=== PATIENT | female | born 1985 | race Caucasian/White ===

== ENCOUNTER 2021-07-30 23:23 | Observation (INO) | payer OTHER ==
[2021-07-30] MEDS ORDERED: DUONEB 0.5-3 MG/3 ml Neb IH ONE (23:30)
[2021-07-30] MEDS ORDERED: Ativan 2 MG/1 ML VIAL ONE (23:40)
--- NOTE | 2021-07-30 23:50 | ERPHSYRPT ---
- History of Present Illness Time Seen by Provider: 07/30/21 23:25 Source: patient, EMS Exam Limitations: clinical condition Physician History: This is a 42-year-old white female who presents via EMS after being picked up at [facility] because of difficulty breathing. EMS arrived and the patient was in respiratory distress and patient was taking a nebulizer treatment upon their arrival and became unresponsive briefly. Patient did not receive steroids in route and patient was maintaining her oxygen saturations in the 94% range. There was no IV access. IV access was attempted but EMS was unsuccessful. Patient was brought in respiratory distress with pulse in the 120s respiratory rate in the 30s and oxygen saturation 93 to 94%. Patient denies illicit drug use. She states she is having an asthmatic attack. Question of patient possibly having positive COVID-19 infection. Timing/Duration: day(s) (3) Severity of Dyspnea-Max: severe Severity of Dyspnea-Current: moderate Possible Cause: occasional episodes Associated Symptoms: anxiety, heart racing, No chest pain/discomfort Travel Risk - International Travel Have you traveled outside of the country in past 3 weeks: No - Coronavirus Screening Are you exhibiting any of the following symptoms?: No Close contact with a COVID-19 positive Pt in past 14-21 Days: No - Review of Systems Constitutional: Lethargy Eyes: No Symptoms (Mild) Ears, Nose, & Throat: No Symptoms Respiratory: Dyspnea, Wheezing Cardiac: No Symptoms Abdominal/Gastrointestinal: No Symptoms Genitourinary Symptoms: No Symptoms Musculoskeletal: No Symptoms Skin: No Symptoms Neurological: No Symptoms Psychological: No Symptoms Endocrine: No Symptoms Hematologic/Lymphatic: No Symptoms Immunological/Allergic: No Symptoms All Other Systems: Reviewed and Negative - Past Medical History Pertinent Past Medical History: Yes - Nursing Vital Signs Nursing Vital Signs: Initial Vital Signs Temperature 97.5 F 07/30/21 23:26 Pulse Rate 120 H 07/30/21 23:26 Respiratory Rate 34 H 07/30/21 23:26 Blood Pressure 153/80 07/30/21 23:26 O2 Sat by Pulse Oximetry 78 L 07/30/21 23:26 Pain Scale Pain Intensity 0 - Physical Exam General Appearance: moderate distress, anxiety (Rousable), lethargy Eye Exam: PERRL/EOMI, eyes nml inspection Ears, Nose, Throat Exam: hearing grossly normal, normal ENT inspection, normal pharynx Neck Exam: normal inspection, non-tender, supple, full range of motion Respiratory Exam: respiratory distress, airway intact, accessory muscle use, wheezing Cardiovascular/Chest Exam: tachycardia Abdominal/Gastrointestinal Exam: soft, normal bowel sounds, No tenderness Rectal Exam: not done Extremity Exam: non-tender, normal range of motion, slow capillary refill Neurologic Exam: oriented x 3, other (Anxious) Skin Exam: ecchymosis Lymphatic Exam: No adenopathy SpO2 Interpretation: normal O2 Delivery: Room Air - Course Nursing assessment & vital signs reviewed: Yes EKG Interpreted by Me: RATE ([id number]), Sinus Tach, NORMAL AXIS, NORMAL INTERVALS, NORMAL QRS, NORMAL ST-T, Other (No acute ischemic changes on today's EKG. No comparison EKG available.) Ordered Tests: Active Orders 24 hr Category Date Time Status Vb Developer STAT Care 07/30/21 23:51 Active Clean Catch Urine Specimen STAT Care 07/30/21 23:52 Active EKG-ER Only STAT Care 07/30/21 23:51 Active IV Insertion STAT Care 07/30/21 23:51 Active Oxygen-ED Only NON-REBREATHER 100% Care 07/30/21 23:51 Active Pulse Oximetry (ED) STAT Care 07/30/21 23:51 Active Pulse Oximetry (ED) STAT Care 07/30/21 23:51 Active CHEST 1 VIEW (PORTABLE) Stat Exams 07/30/21 23:51 Taken CHEST WITH CONTRAST [CT] Stat Exams 07/31/21 01:28 Taken HEAD WITHOUT CONTRAST [CT] Stat Exams 07/31/21 01:28 Taken ARTERIAL BLOOD GASES Stat Lab 07/30/21 23:25 Completed ARTERIAL BLOOD GASES Urgent Lab 07/31/21 00:56 Completed TROPONIN Q3H Lab 07/31/21 03:31 Completed TROPONIN Q3H Lab 07/31/21 05:51 Ordered TROPONIN Q3H Lab 07/31/21 08:51 Ordered TROPONIN Q3H Lab 07/31/21 11:51 Ordered UA W/RFX UR CULTURE Stat Lab 07/30/21 23:52 Completed Respiratory Therapy Assessment DAILY RT 07/31/21 03:00 Active Transfer Order Routine Transfer 07/31/21 Ordered Medication Summary Generic Name Dose Route Start Last Admin Trade Name Freq PRN Reason Stop Dose Admin Sodium Chloride 1,000 mls @ 100 mls/hr 07/31/21 01:30 07/31/21 01:22 Sodium Chloride 0.9% 1000 Ml IV 08/30/21 01:29 100 mls/hr .Q10H SHAKIR Administration Discontinued Medications Generic Name Dose Route Start Last Admin Trade Name Hubert PRN Reason Stop Dose Admin Albuterol/Ipratropium 3 ml 07/30/21 23:30 07/30/21 23:36 Ipratropium/Albuterol Sulfate 3 Ml Ampul.Neb IH 07/30/21 23:31 3 ml STAT ONE Administration Methylprednisolone Sodium 0 mg 07/30/21 23:53 07/30/21 23:30 Succinate 125 mg/ Sterile IM 07/30/21 23:54 125 mg Water 2 ml STAT ONE Administration Methylprednisolone Sodium 0 mg 07/30/21 23:53 07/30/21 23:40 Succinate 125 mg/ Sterile IV 07/30/21 23:54 125 mg Water 2 ml STAT ONE Administration Ceftriaxone Sodium/Dextrose 1 g in 50 mls @ 100 mls/hr 07/31/21 01:11 07/31/21 02:08 Rocephin 1 Gm-D5w 50 Ml Bag IV 07/31/21 01:40 Infused STAT STA Infusion Ceftriaxone Sodium/Dextrose Confirm 07/31/21 01:19 Rocephin 1 Gm-D5w 50 Ml Bag Administered 07/31/21 01:20 Dose 1 g in 50 mls @ ud IV .STK-MED ONE Lorazepam Confirm 07/30/21 23:40 Lorazepam 2 Mg/1 Ml 2 Mg Vial Administered 07/30/21 23:41 Dose 2 mg .ROUTE .STK-MED ONE Lorazepam 1 mg 07/31/21 00:08 07/31/21 00:42 Lorazepam 2 Mg/1 Ml 2 Mg Vial IV 07/31/21 00:09 1 mg STAT ONE Administration Lab/Rad Data: Laboratory Result Diagrams 07/30/21 00:42 07/30/21 00:42 Laboratory Results 07/31/21 07/31/21 07/31/21 Range/Units 03:31 00:56 00:46 WBC (4.0-10.5) K/mm3 RBC (4.1-5.4) M/mm3 Hgb (12.0-16.0) gm/dl Hct (35-47) % MCV (78-100) fl MCH (26-32) pg MCHC (32-36) g/dl RDW (11.5-14.0) % Plt Count (150-450) K/mm3 MPV (7.5-11.0) fl Segmented Neutrophils (36.0-66.0) % Band Neutrophils (0.0-2.0) % Lymphocytes (Manual) (24-44) % Monocytes (Manual) (0.0-12.0) % Eosinophils (Manual) (0.00-3.0) % Atypical Lymphocytes % Platelet Estimate (NORMAL) RBC Morphology D-Dimer (215-500) ng/mL Puncture Site RIGHT BRACHIAL pCO2 40 (35-45) mmHg pO2 259 H* (75-100) mmHg Base Excess 5.0 H (-2.0-2.0) O2 Saturation 97.5 (94-100) g/dF ABG pH 7.47 H (7.35-7.45) ABG HCO3 29.1 H* (22-28) ABG O2 Sat (Measured) 99.8 (95-100) % Reynaldo Test NOT APPLICABLE A-a Gradient 404 a/A Ratio 0.39 Hemoglobin 14.3 Carboxyhemoglobin 1.1 (0.0-6.9) % THgb Methemoglobin 1.2 L (1.4-1.5) % Temperature 37.0 C POC O2 Flow Rate 100 % Sodium (137-145) mmol/L Potassium 3.5 (3.5-5.1) mmol/L Chloride (98-107) mmol/L Carbon Dioxide (22-30) mmol/L Anion Gap (5-15) MEQ/L BUN (7-17) mg/dL Creatinine (0.52-1.04) mg/dL Estimated GFR ML/MIN Glucose (74-106) mg/dL Calcium (8.4-10.2) mg/dL Total Bilirubin (0.2-1.3) mg/dL AST (14-36) U/L ALT (0-35) U/L Alkaline Phosphatase (38-126) U/L Troponin I < 0.012 (0.000-0.034) ng/mL NT-Pro-B Natriuret Pep (0-450) pg/mL Serum Total Protein (6.3-8.2) g/dL Albumin (3.5-5.0) g/dL Urine Color (YELLOW) Urine Appearance (CLEAR) Urine pH (5-6) Ur Specific [place] (1.005-1.025) Urine Protein (Negative) Urine Ketones (NEGATIVE) Urine Blood (0-5) Hector/ul Urine Nitrite (NEGATIVE) Urine Bilirubin (NEGATIVE) Urine Urobilinogen (0-1) mg/dL Ur Leukocyte Esterase (NEGATIVE) Urine WBC (Auto) (0-5) /HPF Urine RBC (Auto) (0-2) /HPF U Epithel Cells (Auto) (FEW) /HPF Urine Bacteria (Auto) (NEGATIVE) /HPF Urine Culture Reflexed (NO) Urine Glucose (NEGATIVE) mg/dL Urine Opiates Level (NEGATIVE) Ur Methadone (NEGATIVE) Urine Barbiturates (NEGATIVE) Ur Phencyclidine (PCP) (NEGATIVE) Urine Amphetamine (NEGATIVE) U Benzodiazepine Level (NEGATIVE) Urine Cocaine (NEGATIVE) Urine Marijuana (THC) (NEGATIVE) Monoscreen (Negative) Influenza Type A Ag NEGATIVE (NEGATIVE) Influenza Type B Ag NEGATIVE (NEGATIVE) RSV (PCR) NEGATIVE (Negative) SARS-CoV-2 (PCR) POSITIVE A (NEGATIVE) Group A Strep Antibody (NEGATIVE) 07/30/21 07/30/21 07/30/21 Range/Units 23:52 23:25 00:42 WBC (4.0-10.5) K/mm3 RBC (4.1-5.4) M/mm3 Hgb (12.0-16.0) gm/dl Hct (35-47) % MCV (78-100) fl MCH (26-32) pg MCHC (32-36) g/dl RDW (11.5-14.0) % Plt Count (150-450) K/mm3 MPV (7.5-11.0) fl Segmented Neutrophils (36.0-66.0) % Band Neutrophils (0.0-2.0) % Lymphocytes (Manual) (24-44) % Monocytes (Manual) (0.0-12.0) % Eosinophils (Manual) (0.00-3.0) % Atypical Lymphocytes % Platelet Estimate (NORMAL) RBC Morphology D-Dimer (215-500) ng/mL Puncture Site RIGHT BRACHIAL pCO2 84 H* (35-45) mmHg pO2 63 L (75-100) mmHg Base Excess -2.6 L (-2.0-2.0) O2 Saturation 83.6 L (94-100) g/dF ABG pH 7.14 L* (7.35-7.45) ABG HCO3 28.6 H (22-28) ABG O2 Sat (Measured) 85.5 L (95-100) % Reynaldo Test NOT APPLICABLE A-a Gradient 545 a/A Ratio 0.10 Hemoglobin 14.6 Carboxyhemoglobin 1.5 (0.0-6.9) % THgb Methemoglobin 0.7 L (1.4-1.5) % Temperature 37.0 C POC O2 Flow Rate 100 % Sodium (137-145) mmol/L Potassium 4.5 (3.5-5.1) mmol/L Chloride (98-107) mmol/L Carbon Dioxide (22-30) mmol/L Anion Gap (5-15) MEQ/L BUN (7-17) mg/dL Creatinine (0.52-1.04) mg/dL Estimated GFR ML/MIN Glucose (74-106) mg/dL Calcium (8.4-10.2) mg/dL Total Bilirubin (0.2-1.3) mg/dL AST (14-36) U/L ALT (0-35) U/L Alkaline Phosphatase (38-126) U/L Troponin I (0.000-0.034) ng/mL NT-Pro-B Natriuret Pep (0-450) pg/mL Serum Total Protein (6.3-8.2) g/dL Albumin (3.5-5.0) g/dL Urine Color YELLOW (YELLOW) Urine Appearance CLEAR (CLEAR) Urine pH 6.0 (5-6) Ur Specific [place] 1.014 (1.005-1.025) Urine Protein 30 (Negative) Urine Ketones NEGATIVE (NEGATIVE) Urine Blood NEGATIVE (0-5) Hector/ul Urine Nitrite NEGATIVE (NEGATIVE) Urine Bilirubin NEGATIVE (NEGATIVE) Urine Urobilinogen NEGATIVE (0-1) mg/dL Ur Leukocyte Esterase NEGATIVE (NEGATIVE) Urine WBC (Auto) 0-2 (0-5) /HPF Urine RBC (Auto) 0-2 (0-2) /HPF U Epithel Cells (Auto) NONE (FEW) /HPF Urine Bacteria (Auto) NONE SEEN (NEGATIVE) /HPF Urine Culture Reflexed NO (NO) Urine Glucose NEGATIVE (NEGATIVE) mg/dL Urine Opiates Level (NEGATIVE) Ur Methadone (NEGATIVE) Urine Barbiturates (NEGATIVE) Ur Phencyclidine (PCP) (NEGATIVE) Urine Amphetamine (NEGATIVE) U Benzodiazepine Level (NEGATIVE) Urine Cocaine (NEGATIVE) Urine Marijuana (THC) (NEGATIVE) Monoscreen NEGATIVE (Negative) Influenza Type A Ag (NEGATIVE) Influenza Type B Ag (NEGATIVE) RSV (PCR) (Negative) SARS-CoV-2 (PCR) (NEGATIVE) Group A Strep Antibody (NEGATIVE) 07/30/21 07/30/21 07/30/21 Range/Units 00:42 00:42 00:42 WBC (4.0-10.5) K/mm3 RBC (4.1-5.4) M/mm3 Hgb (12.0-16.0) gm/dl Hct (35-47) % MCV (78-100) fl MCH (26-32) pg MCHC (32-36) g/dl RDW (11.5-14.0) % Plt Count (150-450) K/mm3 MPV (7.5-11.0) fl Segmented Neutrophils (36.0-66.0) % Band Neutrophils (0.0-2.0) % Lymphocytes (Manual) (24-44) % Monocytes (Manual) (0.0-12.0) % Eosinophils (Manual) (0.00-3.0) % Atypical Lymphocytes % Platelet Estimate (NORMAL) RBC Morphology D-Dimer 1017 H* (215-500) ng/mL Puncture Site pCO2 (35-45) mmHg pO2 (75-100) mmHg Base Excess (-2.0-2.0) O2 Saturation (94-100) g/dF ABG pH (7.35-7.45) ABG HCO3 (22-28) ABG O2 Sat (Measured) (95-100) % Reynaldo Test A-a Gradient a/A Ratio Hemoglobin Carboxyhemoglobin (0.0-6.9) % THgb Methemoglobin (1.4-1.5) % Temperature C POC O2 Flow Rate % Sodium (137-145) mmol/L Potassium (3.5-5.1) mmol/L Chloride (98-107) mmol/L Carbon Dioxide (22-30) mmol/L Anion Gap (5-15) MEQ/L BUN (7-17) mg/dL Creatinine (0.52-1.04) mg/dL Estimated GFR ML/MIN Glucose (74-106) mg/dL Calcium (8.4-10.2) mg/dL Total Bilirubin (0.2-1.3) mg/dL AST (14-36) U/L ALT (0-35) U/L Alkaline Phosphatase (38-126) U/L Troponin I (0.000-0.034) ng/mL NT-Pro-B Natriuret Pep (0-450) pg/mL Serum Total Protein (6.3-8.2) g/dL Albumin (3.5-5.0) g/dL Urine Color (YELLOW) Urine Appearance (CLEAR) Urine pH (5-6) Ur Specific [place] (1.005-1.025) Urine Protein (Negative) Urine Ketones (NEGATIVE) Urine Blood (0-5) Hector/ul Urine Nitrite (NEGATIVE) Urine Bilirubin (NEGATIVE) Urine Urobilinogen (0-1) mg/dL Ur Leukocyte Esterase (NEGATIVE) Urine WBC (Auto) (0-5) /HPF Urine RBC (Auto) (0-2) /HPF U Epithel Cells (Auto) (FEW) /HPF Urine Bacteria (Auto) (NEGATIVE) /HPF Urine Culture Reflexed (NO) Urine Glucose (NEGATIVE) mg/dL Urine Opiates Level NEGATIVE (NEGATIVE) Ur Methadone NEGATIVE (NEGATIVE) Urine Barbiturates NEGATIVE (NEGATIVE) Ur Phencyclidine (PCP) NEGATIVE (NEGATIVE) Urine Amphetamine POSITIVE (NEGATIVE) U Benzodiazepine Level NEGATIVE (NEGATIVE) Urine Cocaine NEGATIVE (NEGATIVE) Urine Marijuana (THC) NEGATIVE (NEGATIVE) Monoscreen (Negative) Influenza Type A Ag (NEGATIVE) Influenza Type B Ag (NEGATIVE) RSV (PCR) (Negative) SARS-CoV-2 (PCR) (NEGATIVE) Group A Strep Antibody NOT DETECTED (NEGATIVE) 07/30/21 07/30/21 07/30/21 Range/Units 00:42 00:42 00:42 WBC 21.1 H (4.0-10.5) K/mm3 RBC 4.80 (4.1-5.4) M/mm3 Hgb 13.7 (12.0-16.0) gm/dl Hct 42.5 (35-47) % MCV 88.5 (78-100) fl MCH 28.5 (26-32) pg MCHC 32.2 (32-36) g/dl RDW 14.2 H (11.5-14.0) % Plt Count 335 (150-450) K/mm3 MPV 10.3 (7.5-11.0) fl Segmented Neutrophils 77 H (36.0-66.0) % Band Neutrophils 5 H (0.0-2.0) % Lymphocytes (Manual) 7 L (24-44) % Monocytes (Manual) 5 (0.0-12.0) % Eosinophils (Manual) 4 H (0.00-3.0) % Atypical Lymphocytes 2 % Platelet Estimate NORMAL (NORMAL) RBC Morphology NORMAL D-Dimer (215-500) ng/mL Puncture Site pCO2 (35-45) mmHg pO2 (75-100) mmHg Base Excess (-2.0-2.0) O2 Saturation (94-100) g/dF ABG pH (7.35-7.45) ABG HCO3 (22-28) ABG O2 Sat (Measured) (95-100) % Reynaldo Test A-a Gradient a/A Ratio Hemoglobin Carboxyhemoglobin (0.0-6.9) % THgb Methemoglobin (1.4-1.5) % Temperature C POC O2 Flow Rate % Sodium 136 L (137-145) mmol/L Potassium 3.2 L (3.5-5.1) mmol/L Chloride 100 (98-107) mmol/L Carbon Dioxide 29 (22-30) mmol/L Anion Gap 9.6 (5-15) MEQ/L BUN 12 (7-17) mg/dL Creatinine 0.83 (0.52-1.04) mg/dL Estimated GFR > 60.0 ML/MIN Glucose 138 H (74-106) mg/dL Calcium 8.4 (8.4-10.2) mg/dL Total Bilirubin 0.60 (0.2-1.3) mg/dL AST 35 (14-36) U/L ALT 21 (0-35) U/L Alkaline Phosphatase 84 (38-126) U/L Troponin I < 0.012 (0.000-0.034) ng/mL NT-Pro-B Natriuret Pep 146 (0-450) pg/mL Serum Total Protein 6.7 (6.3-8.2) g/dL Albumin 3.6 (3.5-5.0) g/dL Urine Color (YELLOW) Urine Appearance (CLEAR) Urine pH (5-6) Ur Specific [place] (1.005-1.025) Urine Protein (Negative) Urine Ketones (NEGATIVE) Urine Blood (0-5) Hector/ul Urine Nitrite (NEGATIVE) Urine Bilirubin (NEGATIVE) Urine Urobilinogen (0-1) mg/dL Ur Leukocyte Esterase (NEGATIVE) Urine WBC (Auto) (0-5) /HPF Urine RBC (Auto) (0-2) /HPF U Epithel Cells (Auto) (FEW) /HPF Urine Bacteria (Auto) (NEGATIVE) /HPF Urine Culture Reflexed (NO) Urine Glucose (NEGATIVE) mg/dL Urine Opiates Level (NEGATIVE) Ur Methadone (NEGATIVE) Urine Barbiturates (NEGATIVE) Ur Phencyclidine (PCP) (NEGATIVE) Urine Amphetamine (NEGATIVE) U Benzodiazepine Level (NEGATIVE) Urine Cocaine (NEGATIVE) Urine Marijuana (THC) (NEGATIVE) Monoscreen (Negative) Influenza Type A Ag (NEGATIVE) Influenza Type B Ag (NEGATIVE) RSV (PCR) (Negative) SARS-CoV-2 (PCR) (NEGATIVE) Group A Strep Antibody (NEGATIVE) - Progress Progress: improved Air Movement: fair Progress Note: 07/31/21 00:02 Chest x-ray shows no acute cardiopulmonary process. At 11:45 PM, after Solu-Medrol, albuterol nebulizer treatment, 1 mg of Ativan intravenously the patient's heart rate is now 107 bpm in a normal rhythm her oxygenation on the nonrebreather is 100%, her respiratory rate is 17 and her systolic blood pressure is now 130. Patient is obviously more comfortable. She is answering questions more readily. 07/31/21 01:27 Patient is lethargic at this time after the Ativan but arousable and she did state that she does not have any allergies to medication. Patient also said that she denied illicit drug use however there is evidence of methamphetamine in her urine drug screen 07/31/21 04:35 CAT scan of the head without contrast to cranial hemorrhage there is an ill- defined isoattenuating 2.6 mass right cerebellar pontine angle meningioma is in the differential they suggest a postcontrast evaluation. CAT scan of the chest with contrast shows motion degradation and poor opacification which limits the evaluation of the distal segmental subsegmental pulmonary artery branches. There is no evidence of acute pulmonary embolic disease otherwise. There is patchy airspace and groundglass opacities in the lower lobes bilaterally. Medical decision making: This patient is still rather sleepy after single dose of Ativan. She is on 3 L nasal cannula oxygen supplementation and is oxygenating approximately 99 to 100%. She is comfortable. Her COVID-19 test came back positive. Therefore, I contacted Dr. Bhardwaj and reviewed this patient history, physical findings, and lab result work-up. We will place her on the Covid unit repeat labs. Blood Culture(s) Obtained: Yes Counseled pt/family regarding: lab results, diagnosis, rad results - Departure Departure Disposition: In-patient Admission Clinical Impression: COVID-19 virus infection, Respiratory distress Condition: Fair Critical Care Time: Yes Critical Care Time(excluding separately billable procedures): Critical 30-74 mins Referrals: DOCTOR,NO FAMILY [Primary Care Provider] - Follow up/PCP as directed
[2021-07-30] MEDS ORDERED: solu-MEDROL 125 MG, Sterile H2O 10 ml 2 ML IM ONE ×2 (23:53)
[2021-07-30] MEDS ORDERED: solu-MEDROL 125 MG, Sterile H2O 10 ml 2 ML IV ONE ×2 (23:53)
[2021-07-31] MEDS ORDERED: Ativan 2 MG/1 ML VIAL IV ONE (00:08)
[2021-07-31 00:18] LABS: A-aADO2 545; ABG HEMOGLOBIN 14.6; ABG POTASSIUM 4.5 (3.5-5.1); ARTERIAL BLD GAS O2 SATURATION 85.5 % (95-100); ARTERIAL BLOOD GAS BASE EXCESS -2.6 (-2.0-2.0); ARTERIAL BLOOD GAS FIO2 100 %; ARTERIAL BLOOD GAS PO2 63 mmHg (75-100); CARBOXYHEMOGLOBIN 1.5 % THgb (0.0-6.9); HCO3- 28.6 (22-28); HGB O2 SAT 83.6 g/dF (94-100); Methhemoglobin 0.7 % (1.4-1.5)
[2021-07-31 00:19] LABS: ABG SITE RIGHT BRACHIAL; ARTERIAL BLOOD GAS PCO2 84 mmHg (35-45); ARTERIAL BLOOD GAS pH 7.14 (7.35-7.45)
[2021-07-31 00:51] LABS: Hematocrit 42.5 % (35-47); Hemoglobin 13.7 gm/dl (12.0-16.0); Mean Cell Volume 88.5 fl (78-100); Mean Corpuscular Hemoglobin 28.5 pg (26-32); Mean Corpuscular Hgb Concent. 32.2 g/dl (32-36); Mean Platelet Volume 10.3 fl (7.5-11.0); Platelet Count 335 K/mm3 (150-450); Red Cell Distribution Width 14.2 % (11.5-14.0); White Blood Count 21.1 K/mm3 (4.0-10.5)
[2021-07-31 01:03] LABS: A-aADO2 404; ABG HEMOGLOBIN 14.3; ABG POTASSIUM 3.5 (3.5-5.1); ABG SITE RIGHT BRACHIAL; ARTERIAL BLD GAS O2 SATURATION 99.8 % (95-100); ARTERIAL BLOOD GAS FIO2 100 %; ARTERIAL BLOOD GAS PCO2 40 mmHg (35-45); ARTERIAL BLOOD GAS PO2 259 mmHg (75-100); ARTERIAL BLOOD GAS pH 7.47 (7.35-7.45); CARBOXYHEMOGLOBIN 1.1 % THgb (0.0-6.9); HCO3- 29.1 (22-28); HGB O2 SAT 97.5 g/dF (94-100); Methhemoglobin 1.2 % (1.4-1.5)
[2021-07-31 01:11] LABS: ALBUMIN 3.6 g/dL (3.5-5.0); ALKALINE PHOSPHATASE 84 U/L (38-126); ANION GAP 9.6 MEQ/L (5-15); BLOOD UREA NITROGEN 12 mg/dL (7-17); CHLORIDE 100 mmol/L (98-107); Calcium 8.4 mg/dL (8.4-10.2); Carbon Dioxide 29 mmol/L (22-30); Creatinine 1 0.83 mg/dL (0.52-1.04); EST GLOMERULAR FILTRATION RATE > 60.0 ML/MIN; Glucose 138 mg/dL (74-106); NT PRO BNP 146 pg/mL (0-450); Potassium 3.2 mmol/L (3.5-5.1); SGOT/AST 35 U/L (14-36); SGPT/ALT 21 U/L (0-35); SODIUM 136 mmol/L (137-145); Total Protein 6.7 g/dL (6.3-8.2)
[2021-07-31] MEDS ORDERED: ROCEPHIN 1 Gm-D5w 50 ml Bag** 1 G/50 ML IVPB IV STA (01:11)
[2021-07-31 01:17] LABS: Appearance CLEAR (CLEAR); Bilirubin NEGATIVE (NEGATIVE); Blood NEGATIVE Ery/ul (0-5); Glucose NEGATIVE (NEGATIVE); Ketones NEGATIVE (NEGATIVE); Leukocyte Esterase NEGATIVE (NEGATIVE); Nitrite NEGATIVE (NEGATIVE); Protein,Urine Dip 30 (Negative); RBC 0-2 /HPF (0-2); Specific Gravity 1.014 (1.005-1.025); Urobilinogen NEGATIVE mg/dL (0-1); WBC 0-2 /HPF (0-5)
[2021-07-31] MEDS ORDERED: Sodium Chloride 0.9% 1000 ML 1,000 ML ONE (01:19)
[2021-07-31] MEDS ORDERED: ROCEPHIN 1 Gm-D5w 50 ml Bag** 1 G/50 ML IVPB IV ONE (01:19)
[2021-07-31 01:24] LABS: Amphetamine,Urine POSITIVE (NEGATIVE); Barbiturate,Urine NEGATIVE (NEGATIVE); Benzodiazepine,Urine NEGATIVE (NEGATIVE); Cocaine,Urine NEGATIVE (NEGATIVE); Methadone,Urine NEGATIVE (NEGATIVE); Opiate,Urine NEGATIVE (NEGATIVE); PCP,Urine NEGATIVE (NEGATIVE); THC,Urine NEGATIVE (NEGATIVE)
[2021-07-31 01:28] LABS: Bacteria NONE SEEN /HPF (NEGATIVE)
[2021-07-31 01:29] LABS: INFLUENZA A NEGATIVE (NEGATIVE); INFLUENZA B NEGATIVE (NEGATIVE); RESPIRATORY SYNCTIAL VIRUS NEGATIVE (Negative)
[2021-07-31] MEDS ORDERED: Sodium Chloride 0.9% 1000 ML 1,000 ML IV SCH ×2 (01:30→05:25)
[2021-07-31 01:44] LABS: SARS-CoV-2 Xpert Express POSITIVE (NEGATIVE)
[2021-07-31 03:01] LABS: ATYPICAL LYMPHS 2 %; BAND 5 % (0.0-2.0); Eosinophil 4 % (0.00-3.0); Lymphocytes 7 % (24-44); Monocyte 5 % (0.0-12.0); Neutrophils 77 % (36.0-66.0); Platelet Estimate NORMAL (NORMAL); Total Cells Counted 100
[2021-07-31] MEDS ORDERED: Zofran 4 MG/2 ML VIAL IV PRN (05:25)
[2021-07-31] MEDS ORDERED: REMDESIVIR 200 MG in Sodium Chloride 0.9% 250 ML 250 ML IV ONE (05:25)
[2021-07-31] MEDS ORDERED: FEVERALL 650 MG PR PRN (05:25)
[2021-07-31] MEDS ORDERED: Sodium Chloride 0.9% 250 ML 250 ML IV ONE (05:43)
[2021-07-31] MEDS ORDERED: REMDESIVIR IV ONE (05:43)
[2021-07-31 06:19] VITALS: BP 103/66
[2021-07-31] MEDS ORDERED: VENTOLIN COMMON CANISTER IH PRN (06:45)
[2021-07-31] MEDS ORDERED: Ativan 2 MG/1 ML VIAL IV PRN (09:00)
--- NOTE | 2021-07-31 09:00 | XRAY ---
Indication: Altered mental status. Multiple contiguous axial images obtained through the head without contrast. Comparison: None Ventriculosulcal pattern appears symmetric. Right cerebellar pontine angle demonstrates a 2.6 cm rounded mass with minimal mass effect. No acute intracranial hemorrhage, abnormal extra-axial fluid collection, or mass effect. Fourth ventricle is midline without hydrocephalus. Bustos-white matter differentiation preserved. Bony calvarium intact. Paranasal sinuses and straight mild/moderate mucosal thickening greatest left frontal sinus. Mastoid air cells are clear. Impression: 1. 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 Rule out meningioma. CT or MRI with contrast exam may yield further information. 2. Paranasal sinus disease. Comment: Preliminary interpretation made by [facility]. No critical discrepancy.
[2021-07-31] MEDS ORDERED: HYDROCODONE-CHLORPHEN ER SUSP PO PRN (09:03)
--- NOTE | 2021-07-31 09:05 | XRAY ---
Indication: Short of breath. Comparison: None Portable chest demonstrates normal heart, lungs, and bony thorax with incidental bilateral nipple shadow.
--- NOTE | 2021-07-31 09:05 | XRAY ---
Indication: Respiratory distress. Multiple contiguous axial images obtained through the chest using 80 cc Isovue 370 contrast and PE protocol. Comparison: None There is good opacification of the pulmonary arteries. However mild diffuse respiration artifact limits evaluation of the more distal lobar and segmental branches. No obvious pulmonary embolus. Heart is not enlarged. Aorta is normal in course and caliber. A few tiny mediastinal and right hilar calcified nodes. No pathologic mediastinal/hilar lymphadenopathy. Lungs demonstrate small right upper lobe calcified granuloma and bilateral mid to lower lung subsegmental atelectasis/scarring. No suspicious pulmonary mass, infiltrate, effusion, or pneumothorax. Bony thorax intact with old sternum fracture. Limited upper abdomen demonstrates mild diffuse fatty liver and cholecystectomy clips. Impression: 1. Pulmonary embolus evaluation limited due to respiration artifact. No obvious pulmonary embolus. 2. Bilateral subsegmental atelectasis/scarring, fatty liver, and old granulomatous disease. Comment: Preliminary interpretation made by [facility]. No critical discrepancy.
[2021-07-31] MEDS ORDERED: Ativan 1 MG PO PRN (09:55)
[2021-07-31] MEDS ORDERED: TYLENOL EXTRA STRENGTH 500 MG PO PRN (09:58)
[2021-07-31] MEDS ORDERED: DECADRON 10MG INJ. IV SCH (10:00)
[2021-07-31] MEDS ORDERED: OLUMIANT PO SCH ×2 (10:00)
[2021-07-31] MEDS ORDERED: ENOXAPARIN SODIUM SQ SCH (10:00)
--- NOTE | 2021-07-31 10:10 | HP ---
HISTORY OF PRESENT ILLNESS: The patient is a 36-year-old white female who was brought in by ambulance after being found confused and using a nebulizer in a gas station/grocery store things in the [employer]. Found that she has a history of asthma. She tested positive for COVID. She did not know she had COVID and was not giving much of a history. She did not want to have blood work but blood work was obtained. She was positive for meth in her urine. She was in some respiratory distress. Her CT scan was done which was unremarkable except for some patchy airspace, ground glass opacities in the lower lobes typical for COVID pneumonia, status post cholecystectomy and something in the pulmonary arteries. No evidence of pulmonary emboli. There is an ill-defined isoattenuating 2.6 cm mass in the right cerebellar pontine angle most likely meningioma suggest contrast evaluation. PAST MEDICAL HISTORY: The patient gave me no history at this time. She refused to talk and she is acting like she is asleep. She apparently was up 15 to 30 minutes ago and asked the nurse to get her breakfast, something to drink and she wanted to get up. She was made NPO. She was given some water and she went back to sleep. The patient will not complete the history beyond that. She also has a history of asthma having a Proventil inhaler. PHYSICAL EXAMINATION: HEENT: Pupils equal and reactive to light. NECK: Supple without adenopathy. CHEST: Few wheezes bilateral. CVS: No tachycardia now, approximately 80. ABDOMEN: Soft. No masses or organomegaly. EXTREMITIES: No cyanosis. Good pulses. LAB DATA AND TESTS: Blood work: Cardiac enzymes were negative. White count 21.1, PLT count minimally elevated at 335,000. Red cell distribution width minimally elevated at 14.2. Neutrophils 77 and band neutrophils 5, lymphs 7. COVID test was positive. Influenza, respiratory syncytial virus were negative. Urine was negative. Urine screen for tox showed methamphetamines reported in the amphetamine group. The D-dimer was elevated twice normal at 1017. IMPRESSION: 1) COVID pneumonia and possibly secondary community acquired pneumonia since her white count is so high. 2) The patient is nonresponsive more likely non-agreeable to any questions. She may be exhausted from using methamphetamine or sick from the COVID. I will follow her up. At this time she will be treated with the usual COVID medications, Albuterol MDI. PROGNOSIS: Good.
[2021-07-31] MEDS: VENTOLIN COMMON CANISTER IH SCH ×2 (10:20→10:58)
[2021-07-31 10:32] VITALS: O2SAT 96
[2021-07-31 11:01] VITALS: PULSE 101
[2021-08-01] MEDS ORDERED: REMDESIVIR 100 MG in Sodium Chloride 0.9% 100 ML BAG 100 ML IV SCH (10:00)
== END 2021-07-31 11:51 | disposition left against medical advice (07) ==
LOC: ED 23:23 → EDBD 23:23 → MED SURG 07-31 05:07 → INTOOBSV 07-31 05:07
PROVIDERS: ADMIT Family Medicine; ATTEND Family Medicine
DX: U07.1 COVID-19 (principal); J12.82 Pneumonia due to coronavirus disease 2019; J45.909 Unspecified asthma, uncomplicated; F19.90 Other psychoactive substance use, unspecified, uncomplicated; R79.89 Other specified abnormal findings of blood chemistry
CPT/HCPCS: 0241U; 36000; 36415; 36600; 70450; 71045; 71260; 80053; 80307; 81001; 82375; 82803; 83880; 84484; 85025; 85379; 86308; 87040; 87651; 93005; 93041; 94640; 94760; 94762; 96372; 96374; 96375; 99285; 99291; G0378; J0696; J1100; J1650; J2060; J2930; J3490; A9270-GY; J0248